=== PATIENT | male | born 1995 ===

== ENCOUNTER 2018-06-03 22:32 | Emergency (ER) | payer OTHER, SELFPAY ==
[2018-06-03 22:34] VITALS: BP 190/124; PULSE 94; RESP 17; TEMP 36.8; O2SAT 94; BMI 33.0
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
[2018-06-04 01:31] VITALS: BP 172/96; PULSE 78; TEMP 37.1; O2SAT 96
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
[2018-06-04] MEDS: HYDROCODONE/ACET 5/325 PREPACK 1 BOTTLE MISC (01:49)
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
== END 2018-06-04 02:10 | disposition home or self-care (01) ==
PROVIDERS: Emergency Provider Emergency Medicine
DX: S53.409A Unspecified sprain of unspecified elbow, initial encounter (principal); S63.502A Unspecified sprain of left wrist, initial encounter; V18.2XXA Unspecified pedal cyclist injured in noncollision transport accident in nontraffic accident, initial encounter
CPT/HCPCS: 73080; 73110; 99282; 99283

== ENCOUNTER 2018-10-06 19:00 | Emergency (ER) | payer OTHER, SELFPAY ==
[2018-10-06 19:06] VITALS: BP 160/96; PULSE 55; RESP 16; TEMP 36.6; O2SAT 100; BMI 29.8
[2018-10-06 19:30] VITALS: BP 160/96; PULSE 55; RESP 16; TEMP 36.6; O2SAT 100; BMI 29.8
--- NOTE | 2018-10-06 19:43 | ED.PSYCH ---
HPI - Psych General Chief Complaint: Medical Clearance Stated Complaint: SUICIDAL THOUGHTS Time Seen by Provider: 10/06/18 19:12 Source: patient Mode of arrival: ambulatory Limitations: no limitations History of Present Illness HPI Narrative: Patient is a 23-year-old male active presenting for psychiatric evaluation. He is brought in by his chief for possible suicidal ideations. Patient adamantly denies any active suicidal homicidal thoughts. He states that he has had a lot going on both at work and in his personal life. He made 1 comment today stating that if he were his parents we get all of his money. His that comment was brought up the chain of command in patient is here for evaluation. He does see a psychiatrist for some anxiety and depression he has been seen by the psychiatrist twice. Psychiatrist has called the emergency department I have spoken with him personally he is willing and able to help in any way that we could feel necessary. Patient has suffered from depression and anxiety for a number of years mostly starting in 2014 after break-up with a fiancee. He was never placed in a mental hospital never had any suicidal attempts in the past. He is adamant that he does not want to hurt himself. He feels that people at work are trying to get him fired but does not seem overly paranoid. He says not everyone just a couple specific people. Related Data Allergies Allergy/AdvReac Type Severity Reaction Status Date / Time No Known Drug Allergies Allergy Verified 06/03/18 22:34 Review of Systems Review of Systems ROS Unobtainable: All systems reviewed & are unremarkable except as noted in HPI and below Constitutional Denies chills, Denies fever(s), Denies lethargy and Denies weakness Cardiovascular Denies chest pain, Denies irregular heart rhythm, Denies lightheadedness, Denies palpitations, Denies dyspnea, Denies dyspnea on exertion and Denies orthopnea Respiratory Denies cough, Denies dyspnea, Denies dyspnea on exertion and Denies wheezing Gastrointestinal Gastrointestinal: Denies abdominal pain, Denies change in bowel habits, Denies diarrhea, Denies nausea and Denies vomiting Genitourinary Denies hematuria, Denies flank pain, Denies urinary incontinence and Denies urinary urgency Musculoskeletal Denies back pain, Denies muscle weakness, Denies numbness and Denies tingling Integumentary/Breasts Denies pruritus, Denies erythema, Denies rash and Denies wounds Neurologic Denies numbness, Denies tingling and Denies weakness Psychiatric Reports as per HPI Endocrine Denies palpitations Allergic/Immunologic Denies wheezing PFSH Medical History Anxiety (Acute) Depression (Acute) Social History Smoking Status: Current some day smoker Exam Initial Vital Signs Initial Vital Signs: Vital Signs Temperature 97.8 F 10/06/18 19:06 Pulse Rate 55 L 10/06/18 19:06 Respiratory Rate 16 10/06/18 19:06 Blood Pressure 160/96 H 10/06/18 19:06 Pulse Oximetry 100 10/06/18 19:06 GENERAL: Well-appearing, well-nourished and in no acute distress. HEENT: Head atraumatic,EOMI, pupils reactive CARDIOVASCULAR: Regular rate and rhythm without murmurs, rubs or gallops. RESPIRATORY: Breath sounds equal bilaterally, no wheezes rales or rhonchi. EXTREMITIES: Normal range of motion, no clubbing or edema. Neurovascularly intact NEUROLOGICAL: Alert and oriented x4.Normal gait and speech. SKIN: Warm, dry, no laceration, no petechiae, no rashes or lesions. Psych Appearance: grossly normal Mental Status: mental status grossly normal Speech and Movement: speech and movement normal Mood: congruent mood Affect: normal affect Attitude: cooperative Thought Process: normal and perseverating Thought Content: normal Judgment: judgment good Course Vital Signs - 8 hr 10/06/18 19:06 10/06/18 19:30 Temperature 97.8 F 97.8 F Pulse Rate 55 L 55 L Respiratory Rate 16 16 Blood Pressure 160/96 H 160/96 H Pulse Oximetry 100 100 MDM - Psych MDM Narrative Medical decision making narrative: At this time patient is able to contract for safety. He does not have any guns in his home. He states that his girlfriend will come over and be with him. I have called and spoken with the psychiatrist myself. He has arranged a next day appointment at 9:00 a.m.. I have spoken with the chief. He states that patient has not specifically told him anything. He was told to bring him to the emergency department by his supervisor [employer] for evaluation. Agrees with discharge. Discharge Plan Departure Patient Disposition: Home Clinical Impression: Depression Discharge Date/Time: 10/06/18 19:50 Interventions: ED Discharge Assessment Last Done: 10/06/18 19:50 Instructions: Depression, DI for Suicidal Ideation-Adult Activity Restrictions/Additional Instructions: *You have been diagnosed with depression If you are feeling suicidal or having suicidal thoughts: Call: Suicide Hotline: Visit: www.HOSTING.org Text: 117133 *Continue to take medications as directed *Follow up with Psychiatry tomorrow at 9:00 a.m. *Return to ER if you should have suicidal ideations, worsening depression, or any new, worsening or concerning symptoms Referrals: [facility] [Provider Group]
--- NOTE | 2018-10-06 19:56 | PC.NURSE ---
Pt states he is not feeling SI, does not have a plan and does not want to harm himself or others. States he has been stressed with work lost his rank and has been told that he may be kicked out of [employer] and personal life stressors with girlfriend. Pt has seen a timber killer on [facility] in past for hx of anxiety and depression, does not take meds currently and denies hospitalization. Pt states that he told coworker today that he had thoughts that if he was he could just give his parents all of his money which prompted coworker to tell chief to which brought him in for evaluation. Pt speaking clearly, well groomed and cooperative.
== END 2018-10-06 19:50 | disposition home or self-care (01) ==
PROVIDERS: Emergency Provider Emergency Medicine
DX: F32.9 Major depressive disorder, single episode, unspecified (principal)
CPT/HCPCS: 99282